=== PATIENT | female | born 1980 | race Two or more races ===

== ENCOUNTER 2021-02-01 08:15 | Day surgery (SDC) | payer OTHER ==
[~2021-02-01 08:15] MED LIST: COLACE100 MG PO; COZAAR25 MG PO; FOLIVANE-PLUS1 EACH PO; MIRALAX17 GM PO; PERCOCET 10-321 EACH PO
== END 2021-02-01 17:35 | disposition home or self-care (01) ==
LOC: CIR.AMB 08:15 → AMB-ENDOS 11:15 → CIR.AMB 17:35
PROVIDERS: ATTEND Colon & Rectal Surgery
DX: C20 Malignant neoplasm of rectum (principal); Z20.822 Contact with and (suspected) exposure to COVID-19
CPT/HCPCS: 36561; C1751